=== PATIENT | male | born 1960 | race Caucasian/White ===

== ENCOUNTER 2022-08-30 07:14 | Emergency (ER) | payer SELFPAY ==
[2022-08-30] VITALS (8 sets, daily range): BP systolic 106–127; BP diastolic 78–105; PULSE 94–116; RESP 18; TEMP 36.6; O2SAT 97–100; BMI 26.5
--- NOTE | 2022-08-30 07:23 | ED.GENADULT ---
HPI - General Adult General Time Seen by Provider: : <Ryan Sprague MD - Last Filed: 08/30/22 07:50> Date Seen: 08/30/22 <Ryan Sprague MD - Last Filed: 08/30/22 07:50> Chief complaint: Abdominal Pain <Ryan Sprague MD - Last Filed: 08/30/22 07:50> Stated complaint: Abdominal bloat <Ryan Sprague MD - Last Filed: 08/30/22 07:50> Time Seen by Provider: 08/30/22 07: <Ryan Sprague MD - Last Filed: 08/30/22 07:50> Source: patient, RN notes reviewed and old records reviewed <Ryan Sprague MD - Last Filed: 08/30/22 07:50> Mode of arrival: ambulatory <Ryan Sprague MD - Last Filed: 08/30/22 07:50> Limitations: no limitations <Ryan Sprague MD - Last Filed: 08/30/22 07:50> History of Present Illness HPI narrative: 61-year-old male who comes in today with 6 months of intermittent abdominal bloating and fullness, worse in the past week. He says this is generalized, until the past week it has been once in a while but consistent recently. He has no nausea nor vomiting with this. It gets worse when he eats when he is having symptoms. He has not taken any medication for this. No dark stools or blood in the stools. Denies chest pain, lightheadedness, urinary symptoms, change in stool caliber or parents, last bowel movement was yesterday. He does note weight loss over the last 6 months or so, is unsure how much weight he has lost. He does not go to the doctor, has not had routine health screenings including colonoscopy <Ryan Sprague MD - Last Filed: 08/30/22 07:50> Related Data Home medications: Previous Rx's Medication Instructions Recorded omeprazole magnesium 20 mg 20 mg PO DAILY #30 tabs 08/30/22 tablet,delayed release (Prilosec OTC) <Ryan pSrague MD - Last Filed: 08/30/22 07:50> Allergies/adverse reactions: Allergies Allergy/AdvReac Type Severity Reaction Status Date / Time No Known Drug Allergies Allergy Verified 08/30/22 07:24 <Ryan Sprague MD - Last Filed: 08/30/22 07:50> Review of Systems Status of ROS: Reports: 10 or more systems reviewed and unremarkable except as noted in History and below <Ryan Sprague MD - Last Filed: 08/30/22 07:50> PFSH PFS Social History: Social History Smoking Status: Current every day smoker What tobacco products do you use: cigarettes How often do you have a drink containing alcohol: 2-3 times a week AUDIT-C Alcohol total score: 3 <Ryan Sprague MD - Last Filed: 08/30/22 07:50> Exam Narrative: Exam Narrative: General: Well-developed and well-nourished, no acute distress Head: Atraumatic and normocephalic Eyes: Pupils are equal reactive, extraocular motions intact, conjunctiva clear ENT: External nose and ears are normal, posterior pharynx without erythema or exudate Neck: No midline cervical tenderness, full spontaneous range of motion the neck, trachea midline, no adenopathy Heart: Regular rate and rhythm no murmurs or thrills Lungs: Clear to auscultation bilaterally without wheezes or crackles Abdomen: Soft, nontender, nondistended with active bowel sounds Musculoskeletal: No tenderness, deformity, or edema Neurologic: Awake, alert, and oriented x3, no gross focal neurologic deficits, cranial nerves intact as tested Psych: Mood and affect are appropriate Skin: No rashes <Ryan Sprague MD - Last Filed: 08/30/22 07:50> Const: Vital Signs, click to edit/add: Vital Signs - 24 hr 08/30/22 07:22 08/30/22 09:48 08/30/22 10:00 Temperature 97.8 F Pulse Rate 96 98 Pulse Rate [Right Pulse Oximeter] 116 H Respiratory Rate 18 Blood Pressure Blood Pressure [Ri ght Upper Arm] 127/105 H Pulse Oximetry 97 97 98 Oxygen Delivery Me thod Room Air 08/30/22 10:02 08/30/22 11:00 08/30/22 11:01 Temperature Pulse Rate 99 99 97 Pulse Rate [Right Pulse Oximeter] Respiratory Rate Blood Pressure 106/78 111/79 Blood Pressure [Ri ght Upper Arm] Pulse Oximetry 99 97 97 Oxygen Delivery Me thod 08/30/22 12:00 08/30/22 12:02 Temperature Pulse Rate 95 94 Pulse Rate [Right Pulse Oximeter] Respiratory Rate Blood Pressure 110/78 Blood Pressure [Ri ght Upper Arm] Pulse Oximetry 99 100 Oxygen Delivery Me thod <Ryan Sprague MD - Last Filed: 08/30/22 07:50> Vital Signs, click to edit/add: Vital Signs - 24 hr 08/30/22 07:22 08/30/22 09:48 08/30/22 10:00 Temperature 97.8 F Pulse Rate 96 98 Pulse Rate [Right Pulse Oximeter] 116 H Respiratory Rate 18 Blood Pressure Blood Pressure [Ri ght Upper Arm] 127/105 H Pulse Oximetry 97 97 98 Oxygen Delivery Me thod Room Air 08/30/22 10:02 08/30/22 11:00 08/30/22 11:01 Temperature Pulse Rate 99 99 97 Pulse Rate [Right Pulse Oximeter] Respiratory Rate Blood Pressure 106/78 111/79 Blood Pressure [Ri ght Upper Arm] Pulse Oximetry 99 97 97 Oxygen Delivery Me thod 08/30/22 12:00 08/30/22 12:02 Temperature Pulse Rate 95 94 Pulse Rate [Right Pulse Oximeter] Respiratory Rate Blood Pressure 110/78 Blood Pressure [Ri ght Upper Arm] Pulse Oximetry 99 100 Oxygen Delivery Me thod <Parveen Dave MD - Last Filed: 08/30/22 16:37> Course Course Hospital Course: Patient seen examined, prior records reviewed. Patient presents today with abdominal pain and bloating sensation which is been going on for 6 months but worse in the past week. Also notes weight loss although is unsure how much weight he has lost. On exam, noted to be tachycardic, no abdominal tenderness, bloating, firmness, or masses. Labs and CT scan are ordered. Suspect that he had evaluation today may not yield cause for his symptoms which may be related to gastritis or ulcers. If emergency department evaluation today is unrevealing, patient when he outpatient follow-up for consideration for colonoscopy, diagnostic or routine for health maintenance, also consider EGD. Fluids are ordered. Patient will be signed out to oncoming provider. Patient turned out to be more involved, as his CT came back showing possible air around the duodenum, the thought was either this is the contained perforated ulcer versus duodenal up polyp, verses duodenal abscess, Dr. Negrete from surgery saw the patient in consultation was able to communicate with the GI, and the patient will be followed up. We will put the patient on some antibiotics, along with omeprazole, as examination when I went back and some did not show any localizing discomfort or peritoneal signs. I think it would be safe to go out for now, with the caveats that if he worsens he needs to come back to the ER. He will need upper endoscopy EUS, for further delineation. Surgery and GI were okay with this <Ryan Sprague MD - Last Filed: 08/30/22 07:50> Consultations Consultation #1: from Surgery <Parveen Dave MD - Last Filed: 08/30/22 16:37> Vital Signs Vital signs: Initial Vital Signs Temperature 97.8 F 08/30/22 07:22 Temperature Source Temporal Artery Scan 08/30/22 07:22 Pulse Rate 116 H 08/30/22 07:22 Respiratory Rate 18 08/30/22 07:22 Blood Pressure 127/105 H 08/30/22 07:22 Blood Pressure Mean 112 H 08/30/22 07:22 Blood Pressure Position Sitting 08/30/22 07:22 Pulse Oximetry 97 08/30/22 07:22 Oxygen Delivery Method Room Air 08/30/22 07:22 Vital Signs Temperature 97.8 F 08/30/22 07:22 Pulse Rate 116 H 08/30/22 07:22 Respiratory Rate 18 08/30/22 07:22 Blood Pressure 127/105 H 08/30/22 07:22 Pulse Oximetry 97 08/30/22 07:22 Oxygen Delivery Method Room Air 08/30/22 07:22 Temperature 97.8 F 08/30/22 07:22 Pulse Rate 94 08/30/22 12:02 Respiratory Rate 18 08/30/22 07:22 Blood Pressure 110/78 08/30/22 12:02 Pulse Oximetry 100 08/30/22 12:02 Oxygen Delivery Method Room Air 08/30/22 07:22 <Ryan Sprague MD - Last Filed: 08/30/22 07:50> Initial Vital Signs Temperature 97.8 F 08/30/22 07:22 Temperature Source Temporal Artery Scan 08/30/22 07:22 Pulse Rate 116 H 08/30/22 07:22 Respiratory Rate 18 08/30/22 07:22 Blood Pressure 127/105 H 08/30/22 07:22 Blood Pressure Mean 112 H 08/30/22 07:22 Blood Pressure Position Sitting 08/30/22 07:22 Pulse Oximetry 97 08/30/22 07:22 Oxygen Delivery Method Room Air 08/30/22 07:22 Vital Signs Temperature 97.8 F 08/30/22 07:22 Pulse Rate 116 H 08/30/22 07:22 Respiratory Rate 18 08/30/22 07:22 Blood Pressure 127/105 H 08/30/22 07:22 Pulse Oximetry 97 08/30/22 07:22 Oxygen Delivery Method Room Air 08/30/22 07:22 Temperature 97.8 F 08/30/22 07:22 Pulse Rate 94 08/30/22 12:02 Respiratory Rate 18 08/30/22 07:22 Blood Pressure 110/78 08/30/22 12:02 Pulse Oximetry 100 08/30/22 12:02 Oxygen Delivery Method Room Air 08/30/22 07:22 <Parveen Dave MD - Last Filed: 08/30/22 16:37> Medical Decision Making MDM Narrative Medical decision making narrative: Social determinants of health include nicotine use, limited access to medical care <Ryan Sprague MD - Last Filed: 08/30/22 07:50> Medical Records Medical records reviewed: Yes I reviewed the patient's medical records <Ryan Sprague MD - Last Filed: 08/30/22 07:50> Lab Data Lab results reviewed: Yes I reviewed the patient's lab results <Ryan Sprague MD - Last Filed: 08/30/22 07:50> Labs: Lab Results 08/30/22 Range/Units 08:00 WBC 10.58 (4.50-11.00) K/uL RBC 5.31 (4.30-5.90) m/uL Hgb 17.0 (13.5-17.5) gm/dL Hct 49.6 (37.0-53.0) % MCV 93 (80-100) fL MCH 32 (26-34) pg MCHC 34 (32-36) gm/dL RDW Coeff of [place]olly 13.0 (11.5-15.5) % Plt Count 435 (140-440) K/uL Neut % (Auto) 72.1 H (42.0-72.0) % Lymph % (Auto) 14.4 L (20-44) % [place] % (Auto) 11.8 H (0.0-11.0) % Eos % (Auto) 0.5 (0.0-7.0) % Baso % (Auto) 0.3 (0.0-3.0) % Neut # (Auto) 7.60 H (1.7-7.0) K/uL Lymph # (Auto) 1.50 (0.90-2.90) K/uL [place] # (Auto) 1.20 H (0.00-0.90) K/UL Eos # (Auto) 0.05 (0.00-0.50) K/uL Baso # (Auto) 0.03 (0.00-0.30) K/uL Sodium 134 L (135-149) mmol/L Potassium 3.8 (3.6-5.1) mmol/L Chloride 102 (96-114) mmol/L Carbon Dioxide 25 (20-32) mmol/L BUN 16 (7-30) mg/dL Creatinine 0.9 (0.5-1.5) mg/dL Estimated Creat Clear 82.62 Estimated GFR 97 ml/min Glucose 120 H (60-115) mg/dL Calcium 9.2 (8.4-10.6) mg/dL Magnesium 2.1 (1.5-2.6) mg/dL Total Bilirubin 0.6 (0.1-1.5) mg/dL Direct Bilirubin 0.4 (0.0-0.5) mg/dL AST 21 (12-35) U/L ALT 26 (4-50) U/L Alkaline Phosphatase 84 (40-150) U/L Total Protein 7.3 (6.0-8.3) g/dL Albumin 4.0 (3.3-5.0) g/dL Lipase 118 (23-300) U/L POC Creatinine 1.0 (0.6-1.3) mg/dl <Ryan Sprague MD - Last Filed: 08/30/22 07:50> Lab Results 08/30/22 Range/Units 08:00 WBC 10.58 (4.50-11.00) K/uL RBC 5.31 (4.30-5.90) m/uL Hgb 17.0 (13.5-17.5) gm/dL Hct 49.6 (37.0-53.0) % MCV 93 (80-100) fL MCH 32 (26-34) pg MCHC 34 (32-36) gm/dL RDW Coeff of [place] 13.0 (11.5-15.5) % Plt Count 435 (140-440) K/uL Neut % (Auto) 72.1 H (42.0-72.0) % Lymph % (Auto) 14.4 L (20-44) % [place] % (Auto) 11.8 H (0.0-11.0) % Eos % (Auto) 0.5 (0.0-7.0) % Baso % (Auto) 0.3 (0.0-3.0) % Neut # (Auto) 7.60 H (1.7-7.0) K/uL Lymph # (Auto) 1.50 (0.90-2.90) K/uL [place] # (Auto) 1.20 H (0.00-0.90) K/UL Eos # (Auto) 0.05 (0.00-0.50) K/uL Baso # (Auto) 0.03 (0.00-0.30) K/uL Sodium 134 L (135-149) mmol/L Potassium 3.8 (3.6-5.1) mmol/L Chloride 102 (96-114) mmol/L Carbon Dioxide 25 (20-32) mmol/L BUN 16 (7-30) mg/dL Creatinine 0.9 (0.5-1.5) mg/dL Estimated Creat Clear 82.62 Estimated GFR 97 ml/min Glucose 120 H (60-115) mg/dL Calcium 9.2 (8.4-10.6) mg/dL Magnesium 2.1 (1.5-2.6) mg/dL Total Bilirubin 0.6 (0.1-1.5) mg/dL Direct Bilirubin 0.4 (0.0-0.5) mg/dL AST 21 (12-35) U/L ALT 26 (4-50) U/L Alkaline Phosphatase 84 (40-150) U/L Total Protein 7.3 (6.0-8.3) g/dL Albumin 4.0 (3.3-5.0) g/dL Lipase 118 (23-300) U/L POC Creatinine 1.0 (0.6-1.3) mg/dl <Parveen Dave MD - Last Filed: 08/30/22 16:37> Discharge Plan Discharge Clinical Impression: Polyp of duodenum, Duodenitis <Ryan Sprague MD - Last Filed: 08/30/22 07:50> Patient Disposition: Home w/ Parent or Adult <Ryan Sprague MD - Last Filed: 08/30/22 07:50> Additional Instructions: Home rest medications as directed, follow-up with the GI, as discussed with you with an by General surgery. Recommend smoking cessation, recommend alcohol cessation 2. No use of ibuprofen, Aleve, decreased caffeinated beverages <Ryan Sprague MD - Last Filed: 08/30/22 07:50> Discharge Diet: Full Liquid <Ryan Sprague MD - Last Filed: 08/30/22 07:50> Full Liquid <Parveen Dave MD - Last Filed: 08/30/22 16:37> Prescriptions: New omeprazole magnesium [Prilosec OTC] 20 mg tablet,delayed release (DR/EC) 20 mg PO DAILY Qty: 30 2RF <Ryan Sprague MD - Last Filed: 08/30/22 07:50> Stand Alone Forms: MyHealth Info Instructions <Ryan Sprague MD - Last Filed: 08/30/22 07:50>
--- NOTE | 2022-08-30 07:34 | CRLHL7_ITS ---
For Patients: As a result of the 21st Century Cures Act, medical imaging exams and procedure reports are released immediately into your electronic medical record. You may view this report before your referring provider. If you have questions, please contact your health care provider. INDICATION: ABD PAIN. BLOATING AND FULLNESS TECHNIQUE: CT abdomen and pelvis with 94 CC ISOVUE 370 IV contrast. COMPARISON: None. FINDINGS: The liver is normal in size, shape and attenuation. Gallbladder and biliary tree are normal. The spleen is unremarkable. No adrenal nodule. Left renal cysts with the largest measuring 4.4 x 5.6 cm. Additional left renal cyst anteriorly and exophytic measuring 4.4 x 3.8 cm. No hydronephrosis. Decompressed bladder. Moderate inflammation surrounding the head/body of the pancreas as well as the proximal and distal duodenum. Air-containing peripancreatic fluid collections with the largest near/superior to the pancreatic head measuring 1.9 x 2.4 x 5.0 cm, and pancreatic body measuring 2.7 x 2.7 by 5.5 cm. The collection near the pancreatic head abuts the gastric antrum and proximal duodenum, and the collection near the pancreatic body abuts the distal duodenum. Both demonstrate loss of fat plane of the subjacent enteric structures. No discrete communication between these two collections although there is inflammation and tiny foci of air between these collections in the mid epigastric region in which free air is not excluded (series 2, image 37). No evidence of bowel obstruction. Colonic diverticulosis without evidence of acute diverticulitis. Hyperdensity throughout the colon may relate to inspissated stool burn versus ingested contents. Abdominal aorta is normal caliber with moderate atherosclerosis. Prostate is enlarged. The lower chest is unremarkable. IMPRESSION: Moderate inflammation surrounding the head/body of the pancreas as well as the proximal and distal duodenum. Air-containing peripancreatic fluid collections with the largest near/superior to the pancreatic head measuring 1.9 x 2.4 x 5.0 cm, and pancreatic body measuring 2.7 x 2.7 by 5.5 cm. The collection near the pancreatic head abuts the gastric antrum and proximal duodenum, and the collection near the pancreatic body abuts the distal duodenum. Both demonstrate loss of fat plane of the subjacent enteric structures. No discrete communication between these two collections although there is inflammation and tiny foci of air between these collections in the mid epigastric region in which free air is not excluded (series 2, image 37). Per discussion with the ER physician patient reportedly has history of ulcer and pain for approximately 3 months. It is difficult to determine the cause of these findings but differential includes perforated gastric/duodenal ulcer which appears predominantly contained although there is question of tiny foci of adjacent non contained free air. Additional consideration would be that this represents acute on possibly chronic pancreatitis with age indeterminate peripancreatic fluid collections. The air within these collections may indicate infection or enteric fistula with adjacent proximal or distal duodenum. Repeat CT with enteric contrast or upper GI fluoroscopic we may be of benefit to see if these collections communicate with the gastric antrum or duodenum. Findings discussed with Dr. Dave at 915 a.m. Please note that all CT scans at this facility use dose modulation, iterative reconstruction, and/or weight-based dosing when appropriate to reduce radiation dose to as low as reasonably achievable. Dictated by Raza Tubbs MD @ 08/30/2022 9:30:57 AM (Electronically Signed)
--- NOTE | 2022-08-30 07:55 | CRLHL7_ITS ---
For Patients: As a result of the Century Cures Act, medical imaging exams and procedure reports are released immediately into your electronic medical record. You may view this report before your referring provider. If you have questions, please contact your health care provider. Indication: Cough, weight loss and smoking history. Technique: Chest 2 views Comparison: None Findings/Impression: Cardiovascular and mediastinum: Heart size and vasculature are normal in caliber and appearance. Mediastinum is within normal limits. Lungs and pleural spaces: Lungs are clear. No sign of infiltrate or mass. No sign of pleural effusion. No pneumothorax. Bones and soft tissues: Mild degenerative disc disease thoracic spine. Dictated by Meek Paniagua MD @ 08/30/2022 9:06:40 AM (Electronically Signed)
[2022-08-30 08:11] LABS: Basophils Absolute Auto 0.03 K/uL (0.00-0.30); Basophils Percent Auto 0.3 % (0.0-3.0); Eosinophils Absolute Auto 0.05 K/uL (0.00-0.50); Eosinophils Percent Auto 0.5 % (0.0-7.0); Hematocrit 49.6 % (37.0-53.0); Immature Granulocytes Abs Auto 0.09 K/uL (0.00-0.30); Immature Granulocytes Pct Auto 0.9 %; Lymphocytes Percent Auto 14.4 % (20-44); Mean Corpuscular HGB Conc 34 gm/dL (32-36); Mean Corpuscular Hemoglobin 32 pg (26-34); Mean Corpuscular Volume 93 fL (80-100); Monocytes Percent Auto 11.8 % (0.0-11.0); Neutrophils Percent Auto 72.1 % (42.0-72.0); Platelet Count* 435 K/uL (140-440); Red Blood Count 5.31 m/uL (4.30-5.90); White Blood Count* 10.58 K/uL (4.50-11.00)
[2022-08-30 08:14] LABS: Slide Review Reflex No
[2022-08-30 08:25] LABS: Chloride* 102 mmol/L (96-114)
[2022-08-30 08:26] LABS: Potassium* 3.8 mmol/L (3.6-5.1); Sodium* 134 mmol/L (135-149)
[2022-08-30 08:28] LABS: Alanine Aminotransferase* 26 U/L (4-50); Alkaline Phosphatase* 84 U/L (40-150); Aspartate Amino Transferase* 21 U/L (12-35); Bilirubin Direct* 0.4 mg/dL (0.0-0.5); Bilirubin Total* 0.6 mg/dL (0.1-1.5); Blood Urea Nitrogen* 16 mg/dL (7-30); Calcium* 9.2 mg/dL (8.4-10.6); Carbon Dioxide* 25 mmol/L (20-32); Creatinine* 0.9 mg/dL (0.5-1.5); Est. Creatinine Clearance* 82.62; Estimated Glomerular Filt Rate 97 ml/min; Glucose* 120 mg/dL (60-115); Lipase* 118 U/L (23-300); Total Protein* 7.3 g/dL (6.0-8.3)
[2022-08-30 08:29] LABS: Magnesium* 2.1 mg/dL (1.5-2.6)
[2022-08-30] MEDS: 0.9 % SODIUM CHLORIDE 1000 ml 1,000 ML IV (08:46)
[2022-08-30] MEDS: PANTOPRAZOLE SODIUM 40 MG INJ IVP (08:47)
[2022-08-30] MEDS: HYDROmorphone 0.5 mg/0.5 ml inj IVP (10:25)
--- NOTE | 2022-08-30 10:58 | CRLHL7_ITS ---
For Patients: As a result of the Century Cures Act, medical imaging exams and procedure reports are released immediately into your electronic medical record. You may view this report before your referring provider. If you have questions, please contact your health care provider. INDICATION: Abdominal pain, bloating and fullness. Known retroperitoneal inflammation in the upper abdomen, assess for contrast extravasation. TECHNIQUE: Axial images were obtained from the diaphragm to the pubic symphysis. Scanning was performed in the prone and supine position as well as supine delayed. Reformats were obtained in the coronal and sagittal plane. IV Contrast: None Oral Contrast: Yes COMPARISON: Abdomen and pelvis CT 08/30/2022 FINDINGS: Lower chest: Unremarkable. Liver: Unremarkable. Normal in size and attenuation. No masses. Gallbladder and bile ducts: Unremarkable. No stones or inflammation. No biliary dilatation. Spleen: Unremarkable. Normal in size without mass. Pancreas: Some fat stranding near the head of the pancreas although this appears centered more posteriorly, see comments below. Adrenal glands: Unremarkable. No nodules. Kidneys: No evidence of hydronephrosis. Left renal cysts. Vasculature: Atherosclerosis without abdominal aortic aneurysm. GI tract: Oral contrast extends into the stomach and proximal small bowel. Again note is made of some wall thickening at the level of the 2nd through 4th portion of the duodenum with subcentimeter lymph nodes, effacement of the pancreaticoduodenal groove as well as multiple bubbles of air in the soft tissue. These extend cephalad from the level of the 3rd/4th portion of the duodenum to near the level of the diaphragm. Bones: Degenerative disc disease thoracolumbar spine. IMPRESSION: 1. Retroperitoneal collections with some internal air as well as some possible extraluminal air near the level of the superior mesenteric artery. This appearance is similar to the examination of 3 hours prior. Considering the appearance and distribution, would favor areas of partially contained perforation from a duodenal diverticulum or ulcer. No contrast extravasation seen. Sequela of pancreatitis is possible although considered less likely. Please note that all CT scans at this facility use dose modulation, iterative reconstruction, and/or weight-based dosing when appropriate to reduce radiation dose to as low as reasonably achievable. Dictated by Meek Paniagua MD @ 08/30/2022 1:14:21 PM (Electronically Signed)
--- NOTE | 2022-08-30 12:15 | PM.GSCN ---
History of Present Illness Consult details Date Seen: 08/30/22 Consult date: 08/30/22 Narrative: Patient presented to the emergency department earlier today with a one-week history of worsening epigastric abdominal pain. He states that the pain started last week after he ate a meal with a lot of hot sauce. He denies any reflux symptoms but had pain in the middle of his abdomen that was burning in sensation. The pain was worse than anything he had ever experienced before. It did eventually subside. Since experiencing that he says that the pain will come and go. The pain gets worse after eating, so he has not been eating as much and reports losing 5 lb in the last week. He has been able to keep down liquids. He denies any nausea or vomiting. No fevers or chills at home. Denies any diarrhea or constipation, last bowel movement was yesterday and normal. He has never had abdominal surgery before. He is an everyday smoker, 1 pack per day. He does report drinking on the weekends, 1-2 beers. He states that he cut back about 4 months ago and was drinking more than. Review of Systems Status of ROS: Reports: 6 or more systems reviewed and unremarkable except as noted in History and below PFSH PFSH Social History Smoking Status: Current every day smoker What tobacco products do you use: cigarettes How often do you have a drink containing alcohol: 2-3 times a week AUDIT-C Alcohol total score: 3 Meds Home Medications and Allergies Home Medications Medication Instructions Recorded Confirmed Type No Known Home Medications 08/30/22 08/30/22 History Allergies Allergy/AdvReac Type Severity Reaction Status Date / Time No Known Drug Allergies Allergy Verified 08/30/22 07:24 Exam Narrative: Exam Narrative: General: Alert and oriented, no acute distress Respiratory: Equal breath rise bilaterally, maintained on room air CV: Regular rhythm rate, well perfused Abdomen: Soft, nondistended nontender to palpation no guarding or rebound. No signs of peritonitis. No previous surgical incisions. Const: Vital Signs, click to edit/add: Vital Signs - 24 hr 08/30/22 07:22 08/30/22 09:48 08/30/22 10:00 Temperature 97.8 F Pulse Rate 96 98 Pulse Rate [Right Pulse Oximeter] 116 H Respiratory Rate 18 Blood Pressure Blood Pressure [Ri ght Upper Arm] 127/105 H Pulse Oximetry 97 97 98 Oxygen Delivery Me thod Room Air 08/30/22 10:02 08/30/22 11:00 08/30/22 11:01 Temperature Pulse Rate 99 99 97 Pulse Rate [Right Pulse Oximeter] Respiratory Rate Blood Pressure 106/78 111/79 Blood Pressure [Ri ght Upper Arm] Pulse Oximetry 99 97 97 Oxygen Delivery Me thod 08/30/22 12:00 08/30/22 12:02 Temperature Pulse Rate 95 94 Pulse Rate [Right Pulse Oximeter] Respiratory Rate Blood Pressure 110/78 Blood Pressure [Ri ght Upper Arm] Pulse Oximetry 99 100 Oxygen Delivery Me thod Results Labs Labs: Abnormal lab results 08/30/22 Range/Units 08:00 Neut % (Auto) 72.1 H (42.0-72.0) % Lymph % (Auto) 14.4 L (20-44) % Stanley % (Auto) 11.8 H (0.0-11.0) % Neut # (Auto) 7.60 H (1.7-7.0) K/uL Stanley # (Auto) 1.20 H (0.00-0.90) K/UL Sodium 134 L (135-149) mmol/L Glucose 120 H (60-115) mg/dL Diabetes panel 08/30/22 Range/Units 08:00 Sodium 134 L (135-149) mmol/L Potassium 3.8 (3.6-5.1) mmol/L Chloride 102 (96-114) mmol/L Carbon Dioxide 25 (20-32) mmol/L BUN 16 (7-30) mg/dL Creatinine 0.9 (0.5-1.5) mg/dL Glucose 120 H (60-115) mg/dL Calcium 9.2 (8.4-10.6) mg/dL AST 21 (12-35) U/L ALT 26 (4-50) U/L Alkaline Phosphatase 84 (40-150) U/L Total Protein 7.3 (6.0-8.3) g/dL Albumin 4.0 (3.3-5.0) g/dL Calcium panel 08/30/22 Range/Units 08:00 Calcium 9.2 (8.4-10.6) mg/dL Albumin 4.0 (3.3-5.0) g/dL Pituitary panel 08/30/22 Range/Units 08:00 Sodium 134 L (135-149) mmol/L Potassium 3.8 (3.6-5.1) mmol/L Chloride 102 (96-114) mmol/L Carbon Dioxide 25 (20-32) mmol/L BUN 16 (7-30) mg/dL Creatinine 0.9 (0.5-1.5) mg/dL Glucose 120 H (60-115) mg/dL Calcium 9.2 (8.4-10.6) mg/dL Adrenal panel 08/30/22 Range/Units 08:00 Sodium 134 L (135-149) mmol/L Potassium 3.8 (3.6-5.1) mmol/L Chloride 102 (96-114) mmol/L Carbon Dioxide 25 (20-32) mmol/L BUN 16 (7-30) mg/dL Creatinine 0.9 (0.5-1.5) mg/dL Glucose 120 H (60-115) mg/dL Calcium 9.2 (8.4-10.6) mg/dL Total Bilirubin 0.6 (0.1-1.5) mg/dL AST 21 (12-35) U/L ALT 26 (4-50) U/L Alkaline Phosphatase 84 (40-150) U/L Total Protein 7.3 (6.0-8.3) g/dL Albumin 4.0 (3.3-5.0) g/dL All other labs normal. Imaging Abdomen CT scan report/results: report reviewed and image reviewed Assessment and Plan Assessment and plan (1) Pancreatic mass: Status: Acute Plan Patient is a 61-year-old male who presented to the emergency department with a one-week history (possible a few months) of epigastric abdominal pain. Workup was obtained, vital signs stable and exam benign. Lab significant for mild left shift, but no leukocytosis and other labs within normal limits. A CT scan was obtained which demonstrated 2 large fluid collections of the head and body of the pancreas, as well as some subtle duodenal thickening. The scan was reviewed with the radiologist and recommendations were for a repeat CT scan with oral contrast both supine and prone to fully dilate the duodenum and look for any evidence of connection to the fluid collections. This was performed and demonstrated duodenal thickening of the 2nd, 3rd and 4th portion of the duodenum. There was no evidence of fistula to the fluid collection. There is some mild lymphadenopathy in the area. Findings could represent a well contained duodenal ulcer versus adenocarcinoma of the duodenum. At this time no surgical intervention is recommended and the recommendation is for further workup with an upper endoscopy and EUS. A phone consultation to gastroenterology has been requested by the emergency room physician. This could potentially be done on a semi urgent basis as an outpatient given the sub chronic nature of the symptoms, patient nontoxic in appearance, benign abdominal exam and able to keep down fluids.
--- NOTE | 2022-08-31 21:23 | ED.NURSE ---
[facility] called regarding pt, requesting records from visit here on 08/30/22. MAGALY was faxed to us. [employer] faxed requested records (transfer report, CT reports, provider's notes) to [facility] fax #: [phone].
== END 2022-08-30 13:39 | disposition home or self-care (01) ==
PROVIDERS: Family Medicine; Emergency Provider Family Medicine
DX: K31.7 Polyp of stomach and duodenum (principal); K29.80 Duodenitis without bleeding
CPT/HCPCS: 36415; 71046; 74150; 74177; 80048; 80076; 82565; 83690; 83735; 85025; 96374; 96375; 99284; 99285; C9113; J1170; J7030; Q9967

== ENCOUNTER 2022-08-31 13:17 | Outpatient (CLI) | payer SELFPAY | END 2022-08-31 13:18 | disposition home or self-care (01) | LOC: NFLDREF 13:18 | PROVIDERS: Visit Provider Surgery | DX: K29.80 Duodenitis without bleeding (principal) | CPT/HCPCS: 86140 ==